=== PATIENT | male | born 1990 | race Caucasian/White ===

== ENCOUNTER 2023-03-23 13:03 | Emergency (ER) | payer MEDICAID ==
[~2023-03-23] VITALS: Ht 177.8 cm; Wt 104.3 kg
[2023-03-23] MEDS ORDERED: IV NORMAL SALINE 1000 ML BAG IV ONE (13:15)
[2023-03-23] MEDS ORDERED: ONDANSETRON 4 MG/2 ML VIAL IV ONE (13:15)
--- NOTE | 2023-03-23 13:19 | NUR ---
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 However. patient is incontinent of urine and c/o anxiety. MD at bedside for exam, informed of plan of care at this time. #20g established in left ac blood collected and sent to lab. Patient is making a whaling sound, side rails up, will continue to monitor.
[2023-03-23] MEDS ORDERED: ONDANSETRON 4 MG/2 ML VIAL ONE (13:26)
[2023-03-23 13:29] LABS: HEMATOCRIT 42.8 % (36.7-47.1); MEAN CORPUSCULAR HEMOGLOBIN 30.2 uug (23.8-33.4); MEAN CORPUSCULAR VOLUME 89.8 fL (73.0-96.2); PLATELET COUNT (AUTO) 203 K/uL (152-348)
--- NOTE | 2023-03-23 13:33 | NUR ---
Patient yelling he want's to go to the [place] and he want to harm himself, MD aware. IVF infusinfg well, and medicated as per order, will continue to monitor.
[2023-03-23] MEDS ORDERED: HALOPERIDOL LACTATE 5 MG/1 ML VIAL IM ONE (13:45)
[2023-03-23] MEDS ORDERED: HALOPERIDOL LACTATE 5 MG/1 ML VIAL ONE (13:45)
[2023-03-23 13:50] LABS: ALANINE AMINOTRANSFERASE 76 U/L (16-63); ALKALINE PHOSPHATASE 109 U/L (50-136); ASPARTATE AMINOTRANSFERASE 46 U/L (15-37); BILIRUBIN,DIRECT 0.1 mg/dL (0.0-0.2); BILIRUBIN,TOTAL 0.3 mg/dL (0.2-1.0); CARBON DIOXIDE 24 mmol/L (21-32); CHLORIDE 107 mmol/L (98-107); GLUCOSE 110 mg/dL (74-106); POTASSIUM 3.1 mmol/L (3.5-5.1); TOTAL PROTEIN, SERUM 7.1 g/dL (6.4-8.2); UREA NITROGEN, BLOOD 8 mg/dL (7-18)
[2023-03-23 14:01] LABS: ACETAMINOPHEN < 2.0 ug/mL (10-30)
[2023-03-23 14:22] LABS: *BILIRUBIN,URIN NEGATIVE (NEGATIVE); *BLOOD, URINE NEGATIVE (NEGATIVE); *CLARITY,URINE CLEAR (CLEAR); *KETONES,URINE NEGATIVE (NEGATIVE); *UROBILINOGEN,URINE 0.2 E.U./dl (NORMAL); LEUKOCYTE ESTERASE ,URINE NEGATIVE (NEGATIVE); NITRITE, URINE NEGATIVE (NEGATIVE); PH,URINE 6.5 (5.0-8.0); UGLUCOSE NEGATIVE (NEGATIVE)
--- NOTE | 2023-03-23 14:23 | NUR ---
Spoke to Pt's mother, Mickey Scott, in person. Mother stated pt doesn't have any psychiatric hx and pt has been drinking for approximately 10 years. Mickey's phone number is .
[2023-03-23 14:29] LABS: *COLOR,URINE STRAW (YELLOW)
[2023-03-23 14:42] LABS: *AMPHETAMINE, URINE NEGATIVE (NEGATIVE); *CANNABINOID, URINE NEGATIVE (NEGATIVE); *COCCAINE, URINE NEGATIVE (NEGATIVE); *PHENCYCLIDINE SCREEN,URINE NEGATIVE (NEGATIVE)
[2023-03-23] MEDS ORDERED: FOLIC ACID/VITAMIN B COMP W-C TABLET PO STA (15:04)
[2023-03-23] MEDS ORDERED: POTASSIUM CHLORIDE 20 MEQ TAB.PRT.SR PO ONE (15:15)
[2023-03-23] MEDS ORDERED: THIAMINE HCL 100 MG TABLET PO ONE (15:15)
[2023-03-23] MEDS ORDERED: THIAMINE HCL 100 MG TABLET ONE (15:18)
--- NOTE | 2023-03-23 15:26 | NUR ---
Patient with frequent movement, IV infiltrated, site dressed, new #20g establishede, IVF infusing as per order.
[2023-03-23] MEDS ORDERED: POTASSIUM CHLORIDE 20 MEQ TAB.PRT.SR ONE (15:28)
--- NOTE | 2023-03-23 16:33 | NUR ---
Patient awke, requesting urinal, provided. IVF are complete will continue to monitor.
--- NOTE | 2023-03-23 16:48 | NUR ---
Requested and given warm blanket, repositioned for comfort.
--- NOTE | 2023-03-23 17:18 | NUR ---
Pt's summary report and lab values sent to [facility] via FAX. Safety measures in place. Will continue to monitor.
--- NOTE | 2023-03-23 18:15 | NUR ---
PTIENT ABLE TO POSITION SELF FOR COMFORT. LAB CURRENTLY AT BEDSIDE, WILL CONTINUE TO MONITOR.
--- NOTE | 2023-03-23 19:01 | NUR ---
Report given to Estela MARINA).
--- NOTE | 2023-03-23 19:10 | NUR ---
Albaro galdamez in [facility] - 03/23/23 at 1925 by [facility] REPORT RECEIVED FROM [place] CASSIDY. PT STABLE ON MONITOR WITH VSS AND ON BI PAP. FAMILY AT BEDSIDE.
--- NOTE | 2023-03-23 19:15 | NUR ---
Albaro galdamez in [facility] - 03/23/23 at 1925 by [facility] LABS WERE DRAWN AT BEDSIDE BY
--- NOTE | 2023-03-23 19:16 | NUR ---
Assumed care of patient from day shift RN Chidi. Recieved patient lying in bed, asleep at this time. In no apparent distress. Appears comfortable.
[2023-03-23] MEDS ORDERED: LORAZEPAM 1 MG TABLET ONE (20:49)
--- NOTE | 2023-03-23 20:50 | NUR ---
Patient was getting anxious, threatening to go AMA. Still suicidal per patient verbalization. Family member present at this time. Patient also accidentaly pulled out IV on right foot. Patient also requesting for anxiety medication. Dr. Bender made aware.
[2023-03-23] MEDS ORDERED: LORAZEPAM 0.5 MG TABLET PO ONE (21:00)
--- NOTE | 2023-03-23 21:10 | NUR ---
Valentine alcohol level 235. Telephone call to [facility] spoke to Wilfredo and informed of alcohol level. Stated that it needs to be below 200 for him to transfer to [facility]. Informed Dr Bender. Will repeat alcohol level in an hour.
--- NOTE | 2023-03-23 22:03 | NUR ---
Telephone call to Marcus Castro and report given regarding patient condition and states understanding. Dr Mendez is the admitting Doctor and transportation ETA between [id number] per ILANA Villalobos.
--- NOTE | 2023-03-23 22:53 | NUR ---
Telephone call to ILANA Villalobos, no answer, left message on voicemail regarding transportation ETA.
--- NOTE | 2023-03-23 23:02 | NUR ---
Per Triage nurse Wilfredo Dupont called back and stated transportaion ETA 15-25 mins.
--- NOTE | 2023-03-23 23:13 | NUR ---
Patient Tranfers to outside Facility: [facility] Physician:Dr Mendez
== END 2023-03-23 23:15 ==
LOC: ER 13:03
DX: F10.129 Alcohol abuse with intoxication, unspecified (principal); F32.A Depression, unspecified; R45.851 Suicidal ideations; E87.6 Hypokalemia; K70.9 Alcoholic liver disease, unspecified; Z20.822 Contact with and (suspected) exposure to COVID-19; Y90.8 Blood alcohol level of 240 mg/100 ml or more
CPT/HCPCS: 80076; 80048; 81003; 85025; 87426; 36415; 99291; 96361; 96374; 96372; 80299; 80320 ×4; 80307; J1630; J2405; J7040; A4663; G0480